=== PATIENT | female | born 1995 | race American Indian/Alaskan Native ===

== ENCOUNTER 2020-01-17 14:46 | Emergency (ER) | payer OTHER ==
[~2020-01-17] VITALS: Ht 170.2 cm; Wt 70.3 kg
[~2020-01-17 14:46] MED LIST: MOTRIN IB200 MG PO
--- NOTE | 2020-01-18 18:10 | EKG ---
[facility] [address] [facility] [place], [place] [address] Signed Normal sinus rhythm Rightward axis Borderline ECG No previous ECGs available Confirmed by FERNANDA HOFFMAN MD ([id number] on 01/18/2020 6:09:59 PM Electronically Signed By: FERNANDA HOFFMAN MD 01/18/20 181 PATIENT NAME: STACY ARAIZA Electrocardiogram DATE OF : [birth year] PHYSICIAN: FERNANDA HOFFMAN MD REPORT #: [id number] REPORT IS CONFIDENTIAL AND NOT TO BE RELEASED WITHOUT AUTHORIZATION
== END 2020-01-17 16:36 | disposition home or self-care (01) ==
LOC: ED 14:46
DX: S06.9X1A Unspecified intracranial injury with loss of consciousness of 30 minutes or less, initial encounter (principal); R55 Syncope and collapse; X58.XXXA Exposure to other specified factors, initial encounter
CPT/HCPCS: 70450; 80053; 81001; 84703; 85025; 93005; 93010; 99285-25; J7040